=== PATIENT | male | born 1965 | race African-American/Black ===

== ENCOUNTER 2020-05-06 09:31 | Emergency (ER) | payer OTHER, SELFPAY ==
[2020-05-06 10:37] VITALS: BP 153/94; PULSE 73; RESP 16; TEMP 36.8; O2SAT 97; BMI 29.4
[2020-05-06 11:11] LABS: Glucose Urine UA NEG (NEG); Leukocyte Esterase Urine NEG (NEG); Nitrite Urine POS (NEG); Specific Gravity - Urine 1.025 (1.005-1.025); Urine Blood TRACE (NEG); Urine Ketones NEG (NEG); Urine Protein NEG (NEG-TRACE)
[2020-05-06 11:13] LABS: Appearance Urine HAZY; Color Urine STRAW
[2020-05-06 11:23] LABS: Bacteria Urine 4+ /LPF; RBC Urine 0-2 /HPF (0)
[2020-05-06] MEDS: cefTRIAXone sodium 500 MG, Lidocaine HCl 1 % MPF 1 ML IM (11:45)
--- NOTE | 2020-05-06 12:14 | ED_ITS ---
HPI - Male Genitourinary General Chief complaint: Urogenital-Male Stated complaint: uti? Time Seen by Provider: 05/06/20 11:11 Source: patient Mode of arrival: ambulatory History of Present Illness HPI Narrative: 54-year-old male with no significant past medical history presenting to the ED, complaining of dysuria, penile discharge with odor, and urinary frequency x a few weeks. Concered for UTI versus STI. Admitted/active with 1 female partner. Also reports intermittent hives noted to back times months. Denies fever, chills, abdominal pain, flank pain, hematuria, genital lesions, testicular pain MD Complaint: penile discharge, dysuria and possible STD exposure Related Data Previous Rx's Medication Instructions Recorded cefpodoxime 200 mg PO BID 10 Days #20 tab 05/06/20 doxycycline hyclate 100 mg PO BID 7 Days #14 tab 05/06/20 Allergies Allergy/AdvReac Type Severity Reaction Status Date / Time No Known Allergies Allergy Unverified 01/15/20 19:27 [No Known Allergies*] Review of Systems Review of Systems: Constitutional: No Weight loss, No Fever, No Chills Gastrointestinal: No Nausea, No Vomiting, No Diarrhea, No Constipation, No Abdominal pain Genitourinary: + Dysuria, + Urinary Frequency, No Hematuria, No Urinary Incontinence, No Urgency, No Flank Pain, No penile or testicular pain / lesions, + testicular discharge Musculoskeletal: No joint pain, No Myalgias, No Joint Swelling Skin: No Skin Lesions, + intermittent rash Yes all other systems are reviewed and are negative [facility] Past Medical History Attestation statement: The following information was validated with the patient. Medical History (Updated 05/06/20 @ 12:14 by SHABNAM Ddoson) History of broken leg Surgical History (Updated 05/06/20 @ 10:42 by Ellen Zhu) H/O hernia repair Social History Social History Smoked in Last 30 Days: No Advance Directives: No Advance Directives Information Provided: No Physical Exam Vital Signs: Vital Signs: Last Vital Signs Temp 98.3 F 05/06/20 10:37 Pulse 73 05/06/20 10:37 Resp 16 05/06/20 10:37 BP 153/94 H 05/06/20 10:37 Pulse Ox 97 05/06/20 10:37 Body Mass Index 29.4 Const: General: cooperative and healthy appearing Orientation/consciousness: patient oriented x3 Limitations: no limitations HENMT: Head: Yes normal to inspection Ears: hearing grossly normal bilaterally General nose exam: Normal external nose present Face and sinus: Yes normal facial exam Eyes: General: appearance normal, both eyes and all related structures EOM: EOMs intact bilaterally Neck: Neck: Yes normal visual inspection Resp: Effort & Inspection: normal respiratory effort Cardio: Rate: regular rate GI: Inspection: Yes normal to inspection Palpation (GI): Soft to palpation, nontender, no guarding and not rigid : General: Yes no CVA tenderness Male General Exam: Yes normal external exam Penis: normal penis and circumcised Meatus: meatus normal, no meatla discharge and No Blood at meatus present Scrotum: scrotum normal Testes: Testes normal, testicular lie normal, epididymides normal, no testicular mass, no testicular swelling and no testicular tenderness Back/Spine/Pelvis: Back: no CVA tenderness Skin: Rashes: no rashes Wounds: no wounds Neuro: General: patient oriented x3 Gait exam (Neuro): Normal gait present Extrem: General: Yes normal to inspection Course Course Course Narrative: Patient empirically treated for gonorrhea and chlamydia today with 500 IM ceftriaxone and doxy MDM - Male Genitourinary MDM Narrative Medical decision making narrative: On exam VSS, NAD/well appearing, abdomen soft/nontender, no CVAT. exam WNL. Concern for UTI versus STI. Lower con cern for renal stone/pyelo or intra-abdominal pathology Lab Data Labs: Lab Results 05/06/20 Range/Units 11:00 Urine Color STRAW Urine Appearance HAZY Urine pH 6.0 (5.0-8.0) Ur Specific [employer] 1.025 (1.005-1.025) Urine Protein NEG (NEG-TRACE) MG/DL Urine Glucose (UA) NEG (NEG) MG/DL Urine Ketones NEG (NEG) MG/DL Urine Blood TRACE (NEG) Urine Nitrite POS H (NEG) Ur Leukocyte Esterase NEG (NEG) Urine RBC 0-2 (0) /HPF Urine WBC 10-14 H (0-4) /HPF Ur Squamous Epith Cells NONE /LPF Urine Bacteria 4+ /LPF Discharge Plan Discharge Clinical Impression: STI (sexually transmitted infection) Urinary tract infection Qualifiers: Urinary tract infection type: acute cystitis Hematuria presence: without hematuria Qualified Code(s): N30.00 - Acute cystitis without hematuria Patient Disposition: Home, Self-Care Instructions: Urinary Tract Infection in Men (ED) Additional Instructions: YOU HAVE A URINARY TRACT INFECTION, CEFPODOXIME IS ANTIBIOTIC, TAKE PRESCRIBED YOU ALSO WERE CONCERNED FOR POSSIBLY SEXUALLY TRANSMITTED INFECTION, YOU WERE TREATED FOR GONORRHEA AND CHLAMYDIA TODAY IN THE ED THE RESULTS SHOULD BE BACK IN 2-3 DAYS, YOU GET A PHONE CALL THAT IS POSITIVE HE SHOULD FOLLOW UP WITH [facility] FOR FURTHER STI TESTING INCLUDING HERPES, HIV, AND SYPHILIS TESTING. FOLLOW-UP WITH HER DOCTOR IF YOUR SYMPTOMS PERSIST OR WORSEN, DEVELOP VOMITING, FEVER, BLOOD IN HER URINE, OR PERSISTENT DISCHARGE RETURN TO THE ED YOU SHOULD REFRAIN FROM ANY SEXUAL CONTACT UNTIL YOU KNOW THE RESULTS OF YOUR CULTURES Prescriptions: New cefpodoxime 200 mg tablet 200 mg PO BID 10 Days Qty: 20 RF: 0 doxycycline hyclate 100 mg tablet 100 mg PO BID 7 Days Qty: 14 RF: 0 Referrals: Physician,None [Primary Care Provider] - 2 days Interventions: ED Discharge Assessment Last Done: 05/06/20 12:38 Discharge Date/Time: 05/06/20 12:38
[2020-05-07 19:57] LABS: C. trachomatis RNA TMA NOT DETECTED (NOT DETECTED); N. gonorrhoeae RNA TMA NOT DETECTED (NOT DETECTED)
== END 2020-05-06 12:38 | disposition home or self-care (01) ==
PROVIDERS: Physician Assistant; Emergency Provider Emergency Medicine Emergency Medical Services
DX: N30.00 Acute cystitis without hematuria (principal); Z20.2 Contact with and (suspected) exposure to infections with a predominantly sexual mode of transmission
CPT/HCPCS: 36415; 81001; 87086; 87088; 87186; 87491; 87591; 96372; 99283; 99284; J0696

== ENCOUNTER 2021-05-24 08:59 | Emergency (ER) | payer OTHER, SELFPAY ==
[2021-05-24 09:01] VITALS: BP 147/97; PULSE 75; RESP 19; TEMP 36.6; O2SAT 98; BMI 30.3
--- NOTE | 2021-05-24 09:38 | ED_ITS ---
HPI - Male Genitourinary General Chief complaint: Urogenital-Male <Diana Doll NP - Last Filed: 05/24/21 11:07> Stated complaint: ?UTI <Diana Doll NP - Last Filed: 05/24/21 11:07> Time Seen by Provider: 05/24/21 09:11 <PEPITO Tomlin Last Filed: 05/24/21 11:07> Source: patient <Diana Doll NP - Last Filed: 05/24/21 11:07> Mode of arrival: ambulatory <PEPITO Tomlin Last Filed: 05/24/21 11:07> Limitations: no limitations <PEPITO Tomlin Last Filed: 05/24/21 11:07> History of Present Illness HPI Narrative: 55 yo male healthy here seeking treatment for gonorrhea. Patient tells me he was informed by his female partner that she is positive for gonorrhea. He has no symptoms. He is sexually active with one female partner. Does not use condoms. He tells me 3 weeks ago he had a rash on his upper thighs/groin but this is resolved. No urinary symptoms, testicular pain, fevers, chills, penile discharge, back or abdominal pain. <PEPITO Tomlin Last Filed: 05/24/21 11:07> Related Data Home medications: Previous Rx's Medication Instructions Recorded cefpodoxime 200 mg tablet 200 mg PO BID 10 Days #20 tab 05/06/20 doxycycline hyclate 100 mg tablet 100 mg PO BID 7 Days #14 tab 05/06/20 doxycycline monohydrate 100 mg 100 mg PO BID #14 tab 05/24/21 tablet <PEPITO Tomlin Last Filed: 05/24/21 11:07> Allergies/Adverse reactions: Allergies Allergy/AdvReac Type Severity Reaction Status Date / Time No Known Allergies Allergy Unverified 01/15/20 19:27 [No Known Allergies*] <PEPITO Tomlin Last Filed: 05/24/21 11:07> Review of Systems Verdana 4l Review of Systems: Verdana 4d Yes all other systems are reviewed and are negative Verdana 4Il <Diana Doll NP - Last Filed: 05/24/21 11:07> Verdana 4d Verdana 4l Constitutional: Verdana 4d Verdana 4d Constitutional: Verdana 4d Reports no additional constitutional complaints, Denies body ache(s), Denies chills, Denies fever(s), Denies headache(s) and Denies weakness Verdana 4Il <Diana Doll NP - Last Filed: 05/24/21 11:07> VerdanaVerdana 4d Eyes: Eyes: Reports no additional eye complaints and Denies change in vision <Diana Doll NP - Last Filed: 05/24/21 11:07> ENT: Reports system reviewed and no additional complaints, except as documented, Denies dizziness, Denies headache(s), Denies nasal congestion, Denies nasal discharge and Denies neck pain <Diana Doll NP - Last Filed: 05/24/21 11:07> Cardiovascular: Cardiovascular: Reports no additional cardiovascular complaints, Denies chest pain, Denies leg edema and Denies dyspnea <Diana Doll NP - Last Filed: 05/24/21 11:07> Respiratory: Respiratory: Reports no additional respiratory complaints, Denies cough and Denies dyspnea <Diana Doll NP - Last Filed: 05/24/21 11:07> Gastrointestinal: Gastrointestinal: Reports no additional gastrointestinal complaints, Denies abdominal pain, Denies diarrhea, Denies nausea and Denies vomiting <Diana Doll NP - Last Filed: 05/24/21 11:07> Genitourinary: Genitourinary: Denies hematuria, Denies dysuria, Denies flank pain, Denies penile discharge, Denies scrotal swelling, Denies testicular mass, Denies testicular pain, Denies urinary frequency, Denies urinary hesitancy, Denies urinary incontinence and Denies urinary urgency <Diana Doll NP - Last Filed: 05/24/21 11:07> Musculoskeletal: Musculoskeletal: Reports no additional musculoskeletal complaints, Denies back pain, Denies arthralgias, Denies joint swelling, Denies neck pain, Denies numbness and Denies tingling <Diana Doll NP - Last Filed: 05/24/21 11:07> Integumentary/Breasts: Skin/Breast: Reports system reviewed and no additional complaints, except as docu and Denies rash <Diana Doll NP - Last Filed: 05/24/21 11:07> Neurologic: Reports system reviewed and no additional complaints, except as documented, Denies Abnormal speech present, Denies dizziness, Denies headache(s), Denies numbness, Denies tingling and Denies weakness <Diana Doll NP - Last Filed: 05/24/21 11:07> PMF Past Medical History Attestation statement: The following information was validated with the patient. <Diana Doll NP - Last Filed: 05/24/21 11:07> Source: old records reviewed and nursing notes reviewed <Diana Doll NP - Last Filed: 05/24/21 11:07> Medical History: Medical History History of broken leg <Diana Doll NP - Last Filed: 05/24/21 11:07> Surgical History: Surgical History H/O hernia repair <Diana Dlol NP - Last Filed: 05/24/21 11:07> Social History Social History: Social History Advance Directives: No Advance Directives Information Provided: No <Diana Doll NP - Last Filed: 05/24/21 11:07> Physical Exam Verdana 4l Vital Signs: Verdana 4d Verdana 4d Vital Signs: Verdana 4d Verdana 4Bd Last Vital Signs Verdana 4d Machine Skiver New 4d Machine Skiver New 4d Temp 98 F 05/24/21 09:01 Machine Skiver New 4d Pulse 75 05/24/21 09:01 Machine Skiver NewNew 4d Resp 19 05/24/21 09:01 BP 147/97 H 05/24/21 09:01 Pulse Ox 98 05/24/21 09:01 BMI result Body Mass Index 30.3 <Diana Doll NP - Last Filed: 05/24/21 11:07> Vital Signs: Last Vital Signs Temp 98 F 05/24/21 09:01 Pulse 75 05/24/21 09:01 Resp 19 05/24/21 09:01 BP 147/97 H 05/24/21 09:01 Pulse Ox 98 05/24/21 09:01 BMI result Body Mass Index 30.3 <Matti Walters MD - Last Filed: 05/24/21 16:27> Const: General: cooperative, healthy appearing, comfortable and no acute distress <Diana Doll NP - Last Filed: 05/24/21 11:07> Orientation/consciousness: patient oriented x3 <Diana Doll NP - Last Filed: 05/24/21 11:07> Limitations: no limitations <Diana Doll NP - Last Filed: 05/24/21 11:07> HENMT: Head: Yes normal to inspection <Diana Doll NP - Last Filed: 05/24/21 11:07> Ears: hearing grossly normal bilaterally and TM's normal bilaterally <Diana Doll NP - Last Filed: 05/24/21 11:07> General nose exam: Normal external nose present <Diana Doll NP - Last Filed: 05/24/21 11:07> Face and sinus: Yes normal facial exam <Diana Doll NP - Last Filed: 05/24/21 11:07> Mouth: Normal oral and palatal mucosa present <Diana Doll NP - Last Filed: 05/24/21 11:07> Throat: Yes posterior oropharynx normal <Diana Doll NP - Last Filed: 05/24/21 11:07> Eyes: General: appearance normal, both eyes and all related structures <Diana Doll NP - Last Filed: 05/24/21 11:07> Pupils: Equal, round and reactive pupils present <Diana Doll NP - Last Filed: 05/24/21 11:07> Neck: Neck: Yes normal visual inspection, Yes full ROM and Yes no lymphadenopathy <Diana Doll NP - Last Filed: 05/24/21 11:07> Chest: Chest palpation & inspection: normal inspection of the chest <Diana Doll NP - Last Filed: 05/24/21 11:07> Resp: Effort & Inspection: normal respiratory effort <Diana Doll NP - Last Filed: 05/24/21 11:07> Auscultation: clear to auscultation bilaterally <Diana Doll NP - Last Filed: 05/24/21 11:07> Cardio: Rate: regular rate <Diana Doll NP - Last Filed: 05/24/21 11:07> Rhythm: regular rhythm <Diana Doll NP - Last Filed: 05/24/21 11:07> Peripheral pulses: Peripheral pulses 2+ throughout <Diana Doll NP - Last Filed: 05/24/21 11:07> GI: Inspection: Yes normal to inspection <Diana Doll NP - Last Filed: 05/24/21 11:07> Palpation (GI): Soft to palpation and nontender <Diana Doll NP - Last Filed: 05/24/21 11:07> Auscultation: normal bowel sounds <Diana Doll NP - Last Filed: 05/24/21 11:07> : Other: Deferred exam <Diana Doll NP - Last Filed: 05/24/21 11:07> Back/Spine/Pelvis: Thoracic/Lumbar Spine: thoracic and lumbar spine normal to inspection <Diana Doll NP - Last Filed: 05/24/21 11:07> Skin: General skin exam: no rashes or lesions noted <Diana Doll NP - Last Filed: 05/24/21 11:07> Neuro: General: patient oriented x3, no focal motor deficits and normal sensation to monofilament <Diana Doll NP - Last Filed: 05/24/21 11:07> Cranial nerves: Yes Equal, round and reactive pupils present <Diana Doll NP - Last Filed: 05/24/21 11:07> Cognition (Neuro): normal cognition <Diana Doll NP - Last Filed: 05/24/21 11:07> Speech: No Abnormal speech present <Diana Doll NP - Last Filed: 05/24/21 11:07> Gait exam (Neuro): Normal gait present <Diana Doll NP - Last Filed: 05/24/21 11:07> Motor exam (neuro): 5/5 motor strength present throughout <Diana Doll NP - Last Filed: 05/24/21 11:07> Extrem: General: Yes normal to inspection <Diana Doll NP - Last Filed: 05/24/21 11:07> Course Course Course Narrative: 55 yo male here with complaints of exposure to gonorrhea from his sexual partner. He is asymptomatic. VSS. Exam is benign. Deferred exam. Will send UA, CT NG. Will treat patient prophylactically with ceftriaxone 500mg IM, doxycycline x 7 days. Reviewed worrisome signs/symptoms with patient and when to return to ED. Comfortable with plan for discharge home. <Diana Doll NP - Last Filed: 05/24/21 11:07> MDM - Male Genitourinary Medical Records Attestation: I reviewed the patient's medical records. <Diana Doll NP - Last Filed: 05/24/21 11:07> Lab Data Attestation: I reviewed the patient's lab results. <Diana Doll NP - Last Filed: 05/24/21 11:07> Labs: Lab Results 05/24/21 05/24/21 Range/Units 09:40 09:40 Urine Color YELLOW Urine Appearance HAZY Urine pH 5.5 (5.0-8.0) Ur Specific [place] >= 1.030 H (1.005-1.025) Urine Protein NEG (NEG-TRACE) MG/DL Urine Glucose (UA) NEG (NEG) MG/DL Urine Ketones NEG (NEG) MG/DL Urine Blood TRACE (NEG) Urine Nitrite POS H (NEG) Ur Leukocyte Esterase NEG (NEG) Urine RBC 0-2 (0) /HPF Urine WBC 15-29 H (0-4) /HPF Ur Squamous Epith Cells NONE /LPF Urine Bacteria 2+ /LPF Urine Mucus 2+ /LPF Chlam trachomat DNA PCR NOT DETECTED (Not Detect.) N.gonorrhoeae DNA (PCR) NOT DETECTED (Not Detect.) <Diana Doll NP - Last Filed: 05/24/21 11:07> Lab Results 05/24/21 05/24/21 Range/Units 09:40 09:40 Urine Color YELLOW Urine Appearance HAZY Urine pH 5.5 (5.0-8.0) Ur Specific [place] >= 1.030 H (1.005-1.025) Urine Protein NEG (NEG-TRACE) MG/DL Urine Glucose (UA) NEG (NEG) MG/DL Urine Ketones NEG (NEG) MG/DL Urine Blood TRACE (NEG) Urine Nitrite POS H (NEG) Ur Leukocyte Esterase NEG (NEG) Urine RBC 0-2 (0) /HPF Urine WBC 15-29 H (0-4) /HPF Ur Squamous Epith Cells NONE /LPF Urine Bacteria 2+ /LPF Urine Mucus 2+ /LPF Chlam trachomat DNA PCR NOT DETECTED (Not Detect.) N.gonorrhoeae DNA (PCR) NOT DETECTED (Not Detect.) <Matti Walters MD - Last Filed: 05/24/21 16:27> Discharge Plan Discharge Clinical Impression: Concern about STD in male without diagnosis <Diana Doll NP - Last Filed: 05/24/21 11:07> Patient Disposition: Home, Self-Care <Diana Doll NP - Last Filed: 05/24/21 11:07> Instructions: Sexually Transmitted Diseases (ED), Safe Sex Practices (ED) <Diana Doll NP - Last Filed: 05/24/21 11:07> Additional Instructions: We have tested you for both gonorrhea and chlamydia. We will call you if the results are positive (this takes about 24-48 hrs) Abstain from unprotected sex for 7 days If you are positive please re-test at [email or web address] after completion of the antibiotics. <Diana Doll NP - Last Filed: 05/24/21 11:07> Prescriptions: New doxycycline monohydrate 100 mg tablet 100 mg PO BID Qty: 14 RF: 0 No Action cefpodoxime 200 mg tablet 200 mg PO BID 10 Days Qty: 20 RF: 0 doxycycline hyclate 100 mg tablet 100 mg PO BID 7 Days Qty: 14 RF: 0 <Diana Doll NP - Last Filed: 05/24/21 11:07> Referrals: Physician,None [Primary Care Provider] - 2 days <Diana Doll NP - Last Filed: 05/24/21 11:07> Interventions: ED Discharge Assessment Last Done: 05/24/21 09:55 <Diana Doll NP - Last Filed: 05/24/21 11:07> Discharge Date/Time: 05/24/21 09:56 <Diana Doll NP - Last Filed: 05/24/21 11:07>
[2021-05-24] MEDS: cefTRIAXone sodium 500 MG, Lidocaine HCl 1 % MPF 1 ML IM (09:52)
[2021-05-24 09:59] LABS: Appearance Urine HAZY; Color Urine YELLOW; Glucose Urine UA NEG (NEG); Leukocyte Esterase Urine NEG (NEG); Nitrite Urine POS (NEG); PH 5.5 (5.0-8.0); Specific Gravity - Urine >= 1.030 (1.005-1.025); UACC Culture Trigger YES; Urine Blood TRACE (NEG); Urine Ketones NEG (NEG); Urine Protein NEG (NEG-TRACE)
[2021-05-24 10:13] LABS: Bacteria Urine 2+ /LPF; Mucus Urine 2+ /LPF; RBC Urine 0-2 /HPF (0)
[2021-05-24 11:17] LABS: CT PCR NOT DETECTED (Not Detect.); NG PCR NOT DETECTED (Not Detect.)
== END 2021-05-24 09:56 | disposition home or self-care (01) ==
PROVIDERS: Nurse Practitioner Family; Emergency Provider Emergency Medicine
DX: Z20.2 Contact with and (suspected) exposure to infections with a predominantly sexual mode of transmission (principal); Z79.899 Other long term (current) drug therapy
CPT/HCPCS: 81001; 81003; 87086; 87088; 87186; 87491; 87591; 96372; 99284; J0696

== ENCOUNTER 2021-09-09 04:35 | Emergency (ER) | payer OTHER, SELFPAY ==
[2021-09-09 04:51] VITALS: BP 125/80; PULSE 81; RESP 16; TEMP 37.3; O2SAT 96; BMI 30.2
[2021-09-09 05:07] LABS: Appearance Urine CLEAR; Color Urine YELLOW; Glucose Urine UA NEG (NEG); Leukocyte Esterase Urine NEG (NEG); Nitrite Urine NEG (NEG); PH 5.5 (5.0-8.0); Specific Gravity - Urine >= 1.030 (1.005-1.025); Urine Blood NEG (NEG); Urine Ketones 5 MG/DL (NEG); Urine Protein TRACE MG/DL (NEG-TRACE)
--- NOTE | 2021-09-09 06:18 | ED.MALEGU ---
HPI - Male Genitourinary General Chief complaint: Urogenital-Male Stated complaint: UTI Time Seen by Provider: 09/09/21 06:16 Source: patient and family () Mode of arrival: ambulatory History of Present Illness HPI Narrative: 55-year-old male who presents with complaints burning and discharge from his penis is concerned that he may have a sexually transmitted infection. Otherwise, he denies any scrotal or testicular pain and also denies any fever chills. Related Data Previous Rx's Medication Instructions Recorded cefpodoxime 200 mg tablet 200 mg PO BID 10 Days #20 tab 05/06/20 doxycycline hyclate 100 mg tablet 100 mg PO BID 7 Days #14 tab 05/06/20 doxycycline monohydrate 100 mg 100 mg PO BID #14 tab 05/24/21 tablet sulfamethoxazole 800 1 tab PO BID #14 tab 06/04/21 mg-trimethoprim 160 mg tablet (Bactrim DS) doxycycline hyclate 100 mg capsule 100 mg PO BID 7 Days #14 cap 09/09/21 Allergies Allergy/AdvReac Type Severity Reaction Status Date / Time No Known Allergies Allergy Verified 09/09/21 04:51 [No Known Allergies*] Review of Systems Review of Systems: Pertinent positives and negatives as stated in HPI 10 point review of systems is otherwise negative PMFSH Past Medical History Source: nursing notes reviewed Medical History History of broken leg Surgical History H/O hernia repair Social History Social History Advance Directives: No Advance Directives Information Provided: Yes Physical Exam Vital Signs: Vital Signs: Last Vital Signs Temp 99.2 F 09/09/21 04:51 Pulse 84 09/09/21 06:27 Resp 18 09/09/21 06:27 BP 128/76 09/09/21 06:27 Pulse Ox 99 09/09/21 06:27 BMI result Body Mass Index 30.2 VITAL SIGNS: Reviewed. GENERAL: Well developed, well nourished, in no acute distress. HEAD: Normocephalic/atraumatic EYES: PERRLA, EOMI LUNGS: Normal breath sounds. CARDIOVASCULAR: Regular rate and rhythm without noted murmurs ABDOMEN: Soft, non-tender, non-distended with bowel sounds. SKIN: Inspection of the skin reveals no rashes NEUROLOGIC: Alert and oriented x 4. Course Course Course Narrative: 55-year-old male with history and clinical presentation suggestive of possible sexually transmitted infection and was empirically treated here in the emergency room and discharged with course of doxycycline. MDM - Male Genitourinary Lab Data Labs: Lab Results 09/09/21 09/09/21 Range/Units 05:01 05:01 Urine Color YELLOW Urine Appearance CLEAR Urine pH 5.5 (5.0-8.0) Ur Specific [place] >= 1.030 H (1.005-1.025) Urine Protein TRACE (NEG-TRACE) MG/DL Urine Glucose (UA) NEG (NEG) MG/DL Urine Ketones 5 (NEG) MG/DL Urine Blood NEG (NEG) Urine Nitrite NEG (NEG) Ur Leukocyte Esterase NEG (NEG) Chlam trachomat DNA PCR NOT DETECTED (Not Detect.) N.gonorrhoeae DNA (PCR) NOT DETECTED (Not Detect.) Discharge Plan Discharge Clinical Impression: Urethritis Patient Disposition: Home, Self-Care Instructions: Nonspecific Urethritis in Men (ED) Additional Instructions: 1. Complete the entire course of antibiotics as prescribed. 2. Follow-up on the results by logging into the patient portal for concept your primary care provider to obtain information. Return to the ER for worsening symptoms. Prescriptions: New doxycycline hyclate 100 mg capsule 100 mg PO BID 7 Days Qty: 14 0RF No Action cefpodoxime 200 mg tablet 200 mg PO BID 10 Days Qty: 20 0RF Rx Instructions: must administer with a meal/food doxycycline hyclate 100 mg tablet 100 mg PO BID 7 Days Qty: 14 0RF doxycycline monohydrate 100 mg tablet 100 mg PO BID Qty: 14 0RF sulfamethoxazole-trimethoprim [Bactrim DS] 800-160 mg tablet 1 tab PO BID Qty: 14 0RF Interventions: ED Discharge Assessment Last Done: 09/09/21 06:41 Discharge Date/Time: 09/09/21 06:42
[2021-09-09 06:27] VITALS: BP 128/76; PULSE 84; RESP 18; O2SAT 99
[2021-09-09] MEDS: cefTRIAXone sodium 500 MG, Lidocaine HCl 1 % MPF 1 ML IM (06:31)
[2021-09-09 06:45] LABS: CT PCR NOT DETECTED (Not Detect.); NG PCR NOT DETECTED (Not Detect.)
== END 2021-09-09 06:42 | disposition home or self-care (01) ==
PROVIDERS: Emergency Provider Student in an Organized Health Care Education/Training Program
DX: N34.2 Other urethritis (principal)
CPT/HCPCS: 81003; 87491; 87591; 96372; 99283; 99284; J0696

== ENCOUNTER 2021-09-15 04:27 | Emergency (ER) | payer OTHER, SELFPAY ==
--- NOTE | ~2021-09-15 | XR_ITS ---
EXAMINATION: XR CHEST CLINICAL INFORMATION: Cough COMPARISON: 07/19/2017 TECHNIQUE: Frontal view of the chest was obtained. FINDINGS: The lungs are well expanded. Hazy opacities at both lung bases. No pleural effusion or pneumothorax. The cardiomediastinal silhouette is within normal limits. No acute osseous abnormality. XR/XR chest 1V IMPRESSION: Hazy bibasilar opacities could be atelectatic or infectious/inflammatory.
[2021-09-15 04:35] VITALS: BP 119/78; PULSE 89; RESP 16; TEMP 37.7; O2SAT 93; BMI 29.4
[2021-09-15 05:00] LABS: COVID-19 Test Positive (Negative)
[2021-09-15 05:26] LABS: IDNOW Serial# 16C4AD1C; Influenza A Invalid (Negative); Influenza B2 Invalid (Negative)
--- NOTE | 2021-09-15 07:03 | ED.URI ---
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) Associated symptoms: fever and cough Treatments prior to arrival: none Related Data Previous Rx's Medication Instructions Recorded cefpodoxime 200 mg tablet 200 mg PO BID 10 Days #20 tab 05/06/20 doxycycline hyclate 100 mg tablet 100 mg PO BID 7 Days #14 tab 05/06/20 doxycycline monohydrate 100 mg 100 mg PO BID #14 tab 05/24/21 tablet sulfamethoxazole 800 1 tab PO BID #14 tab 06/04/21 mg-trimethoprim 160 mg tablet (Bactrim DS) doxycycline hyclate 100 mg capsule 100 mg PO BID 7 Days #14 cap 09/09/21 dexamethasone 6 mg tablet 6 mg PO DAILY 7 Days #7 tab 09/15/21 Allergies Allergy/AdvReac Type Severity Reaction Status Date / Time No Known Allergies Allergy Verified 09/15/21 04:35 [No Known Allergies*] Review of Systems Review of Systems: Constitutional : positive Fever, no Chills, no fatigue, no Malaise ENT/Mouth : no sore throat, no runny nose Eyes: No Discharge Cardiovascular : No Chest Pain, No SOB Respiratory : pos Cough, No Sputum Gastrointestinal : No Nausea, No Vomiting, No Diarrhea Genitourinary : No Dysuria, No Urinary Frequency Musculoskeletal : no Myalgia Skin : No rash Neuro : No Headache PMFSH Past Medical History Attestation statement: The following information was validated with the patient. Medical History Bronchitis History of broken leg Surgical History H/O hernia repair Social History Social History (Updated 09/15/21 @ 07:37 by Ratna Millard DO) Patient Tobacco Use Status: Never used Tobacco Advance Directives: No Physical Exam Vital Signs: Vital Signs: Last Vital Signs Temp 99.8 F 09/15/21 04:35 Pulse 80 09/15/21 07:30 Resp 16 09/15/21 07:30 BP 119/78 09/15/21 04:35 Pulse Ox 92 09/15/21 07:56 BMI result Body Mass Index 29.4 Appearance: Alert. Oriented X3. No acute distress. Eyes: Pupils equal, round and reactive to light. ENT: Pharynx normal. Neck: Normal inspection. Neck supple. CVS: Normal heart rate and rhythm. Pulses normal. Respiratory: No respiratory distress. Breath sounds slightly diminished but no wheezes noted and he appears in no distress Abdomen: Soft and nontender. Skin: Skin warm and dry. Normal skin color. Normal skin turgor. Extremities: No lower extremity edema. Neuro: Oriented X 3. No motor deficit. No sensory deficit. Course Course Course Narrative: 92% walking sat does not meet hypoxia criteria did not feel short of breath not labored MDM - URI/Sore Throat MDM Narrative Medical decision making narrative: 55 yo male hx of bronchitis he is not vaccinated + for COVID CXR shows opacities RA sat 93% he is not in any distress. He has no CP at this time. He will need INH and given hx of prior RAD start on dexamethasone. I did offer treatment such as mAb, remdesivir and paxlovid given his age and unvaccinated status but he refuses and states he wants to try other things that he's heard of specifically hydrogen peroxide. I told him this could be dangerous and these are not validated treatments. He still declines medical therapies. Will ambulate patient and obtain O2 trial. Lab Data Labs: Lab Results 09/15/21 09/15/21 Range/Units 04:46 04:46 COVID-19 (ANN-MARIE) Positive A (Negative) COVID-19 Clin Com See Note Influenza Type A (TRACY) Invalid (Negative) Influenza Type B (TRACY) Invalid (Negative) Influenza A & B Note See Note Discharge Plan Discharge Clinical Impression: Pneumonia due to 2019-nCoV Patient Disposition: Home, Self-Care Instructions: Viral Pneumonia (ED), COVID-19 (Coronavirus Disease 2019) (ED) Additional Instructions: return to ED for any worsening symptoms or concerns you can use the inhaler 2 to 4 puffs every 4 hours as needed if you change your mind and want referral for monoclonal antibody, paxlovid or remdesivir please contact your primary care or come back to the emergency department. you declined treatment today. if you are so short of breath you cannot walk to your bathroom seek immediate care. Prescriptions: New dexamethasone 6 mg tablet 6 mg PO DAILY 7 Days Qty: 7 0RF No Action cefpodoxime 200 mg tablet 200 mg PO BID 10 Days Qty: 20 0RF Rx Instructions: must administer with a meal/food doxycycline hyclate 100 mg tablet 100 mg PO BID 7 Days Qty: 14 0RF doxycycline monohydrate 100 mg tablet 100 mg PO BID Qty: 14 0RF sulfamethoxazole-trimethoprim [Bactrim DS] 800-160 mg tablet 1 tab PO BID Qty: 14 0RF doxycycline hyclate 100 mg capsule 100 mg PO BID 7 Days Qty: 14 0RF Stand Alone Forms: Work/School Release
[2021-09-15] MEDS: Albuterol Sulfate 90 MCG 8 GM INHALER 2 PUFF INHALE (07:29)
[2021-09-15 07:30] VITALS: PULSE 80; RESP 16; O2SAT 95
[2021-09-15 07:56] VITALS: O2SAT 92
[2021-09-15] MEDS: dexAMETHasone 6 MG TABLET PO (07:56)
== END 2021-09-15 08:12 | disposition home or self-care (01) ==
PROVIDERS: Emergency Provider Emergency Medicine
DX: U07.1 COVID-19 (principal); J12.82 Pneumonia due to coronavirus disease 2019; R05.9 Cough, unspecified; Z79.899 Other long term (current) drug therapy
CPT/HCPCS: 71045; 87502; 87635; 94640; 99281; 99284; J8540

== ENCOUNTER 2022-06-16 17:45 | Emergency (ER) | payer OTHER, SELFPAY ==
--- NOTE | 2022-06-16 18:48 | ED_ITS ---
HPI - Male Genitourinary General Chief complaint: Urogenital-Male Stated complaint: ?UTI Time Seen by Provider: 06/16/22 22:56 Related Data Previous Rx's Medication Instructions Recorded cefpodoxime 200 mg tablet 200 mg PO BID 10 days #20 tabs 05/06/20 doxycycline hyclate 100 mg tablet 100 mg PO BID 7 days #14 tabs 05/06/20 doxycycline monohydrate 100 mg 100 mg PO BID #14 tabs 05/24/21 tablet sulfamethoxazole 800 1 tab PO BID #14 tabs 06/04/21 mg-trimethoprim 160 mg tablet (Bactrim DS) doxycycline hyclate 100 mg capsule 100 mg PO BID 7 days #14 caps 09/09/21 dexamethasone 6 mg tablet 6 mg PO DAILY 7 days #7 tabs 09/15/21 doxycycline hyclate 100 mg capsule 100 mg PO BID 7 days #14 caps 09/15/21 cefuroxime axetil 500 mg tablet 500 mg PO BID #14 tabs 06/16/22 doxycycline hyclate 100 mg capsule 100 mg PO BID #14 caps 06/16/22 Allergies Allergy/AdvReac Type Severity Reaction Status Date / Time No Known Allergies Allergy Verified 06/16/22 18:48 [No Known Allergies*] PMFSH Past Medical History Medical History Bronchitis History of broken leg Surgical History H/O hernia repair Social History Social History (Updated 09/15/21 @ 07:37 by Saundra Millard DO) Patient Tobacco Use Status: Never used Tobacco Advance Directives: No Advance Directives Information Provided: No Physical Exam Vital Signs: Vital Signs: Last Vital Signs Temp 97.6 F 06/16/22 23:18 Pulse 52 06/16/22 23:18 Resp 20 06/16/22 23:18 BP 145/90 H 06/16/22 23:18 Pulse Ox 97 06/16/22 23:18 O2 Del Method 06/16/22 23:18 BMI result Body Mass Index 30.2 Course Course Course Narrative: SULEMA-19:50PM 56yoM presenting to the ED with complaints of dysuria and abnormal white discharge started today and he is concerns for STD and would like to be checked. His partner also has lots of discharge , per pt. he denies any fevers, abdominal pain, rashes or lesions to the penile area, testicular pain or swelling or any other symptoms complaints or concerns at this time. Plan: Will obtain a UA and a CT NG evaluate for possible gonorrhea Medications Administered Discontinued Medications Generic Name Dose Route Start Last Admin Trade Name Francy PRN Reason Stop Dose Admin Ceftriaxone Sodium 1 gm/ 0 gm 06/16/22 23:12 06/16/22 23:27 Lidocaine HCl 2.1 ml IM 06/16/22 23:13 1 kit ONCE ONE Administration Doxycycline Monohydrate 100 mg 06/16/22 23:12 06/16/22 23:27 Doxycycline Monohydrate 100 Mg Capsule PO 06/16/22 23:13 100 mg ONCE ONE Administration Medical Decision Making Lab Data Labs: Lab Results 06/16/22 06/16/22 Range/Units 21:08 21:08 Urine Color Yellow Urine Appearance Cloudy Urine pH 5.5 (5.0-9.0) Ur Specific [place] 1.025 (1.005-1.025) Urine Protein 30 (1+) H (Neg-Trace) mg/dL Urine Glucose (UA) Negative (Negative) mg/dL Urine Ketones Negative (Negative) mg/dL Urine Blood Trace H (Negative) Urine Nitrite Negative (Negative) Ur Leukocyte Esterase Large (3+) H (Negative) Urine RBC 3-5 H (0-2) /HPF Urine WBC >50 H (0-5) /HPF Ur Squamous Epith Cells 0-2 (0-2) /HPF Urine Bacteria 4+ (None Seen) Hyaline Casts 0-2 (0-2) /LPF Chlam trachomat DNA PCR NOT DETECTED (Not Detect.) N.gonorrhoeae DNA (PCR) NOT DETECTED (Not Detect.) Discharge Plan Discharge Clinical Impression: Acute UTI, STD exposure Patient Disposition: Home, Self-Care Instructions: Sexually Transmitted Diseases (ED), Urinary Tract Infection in Men (ED) Additional Instructions: Please follow-up with your primary care physician tomorrow. If you have any worsening or new symptoms, please return to the emergency room or call 911 Prescriptions: New cefuroxime axetil 500 mg tablet 500 mg PO BID Qty: 14 0RF doxycycline hyclate 100 mg capsule 100 mg PO BID Qty: 14 0RF No Action cefpodoxime 200 mg tablet 200 mg PO BID 10 Days Qty: 20 0RF Rx Instructions: must administer with a meal/food doxycycline hyclate 100 mg tablet 100 mg PO BID 7 Days Qty: 14 0RF doxycycline monohydrate 100 mg tablet 100 mg PO BID Qty: 14 0RF sulfamethoxazole-trimethoprim [Bactrim DS] 800-160 mg tablet 1 tab PO BID Qty: 14 0RF doxycycline hyclate 100 mg capsule 100 mg PO BID 7 Days Qty: 14 0RF dexamethasone 6 mg tablet 6 mg PO DAILY 7 Days Qty: 7 0RF doxycycline hyclate 100 mg capsule 100 mg PO BID 7 Days Qty: 14 0RF Interventions: ED Discharge Assessment Last Done: 06/16/22 23:33 Discharge Date/Time: 06/16/22 23:33
[2022-06-16 18:49] VITALS: BP 136/82; PULSE 77; RESP 16; TEMP 37.1; O2SAT 96; BMI 30.2
[2022-06-16 21:21] LABS: Appearance Urine Cloudy; Color Urine Yellow; Glucose Urine UA Negative (Negative); Leukocyte Esterase Urine Large (3+) (Negative); Nitrite Urine Negative (Negative); PH 5.5 (5.0-9.0); Specific Gravity - Urine 1.025 (1.005-1.025); UMIC TRIGGER UACC YES; Urine Blood Trace (Negative); Urine Ketones Negative (Negative); Urine Protein 30 (1+) mg/dL (Neg-Trace)
[2022-06-16 21:32] LABS: Bacteria Urine 4+ (None Seen); Hyaline Casts Urine 0-2 /LPF (0-2); Squamous Epithelial Cell Urine 0-2 /HPF (0-2); UACC Culture Trigger YES; WBC Urine >50 /HPF (0-5)
--- NOTE | 2022-06-16 23:15 | ED.MALEGU ---
HPI - Male Genitourinary General Chief complaint: Urogenital-Male Stated complaint: ?UTI Time Seen by Provider: 06/16/22 22:56 Source: patient Mode of arrival: ambulatory Limitations: no limitations History of Present Illness HPI Narrative: Patient comes to the emergency room complaining of penile discharge, pain with urination. Patient states that his partner has the same symptoms. Patient requesting to be treated for STDs. Denies fever chills. Patient complaining of mild suprapubic discomfort, no flank pain. No other complaints. Related Data Previous Rx's Medication Instructions Recorded cefpodoxime 200 mg tablet 200 mg PO BID 10 days #20 tabs 05/06/20 doxycycline hyclate 100 mg tablet 100 mg PO BID 7 days #14 tabs 05/06/20 doxycycline monohydrate 100 mg 100 mg PO BID #14 tabs 05/24/21 tablet sulfamethoxazole 800 1 tab PO BID #14 tabs 06/04/21 mg-trimethoprim 160 mg tablet (Bactrim DS) doxycycline hyclate 100 mg capsule 100 mg PO BID 7 days #14 caps 09/09/21 dexamethasone 6 mg tablet 6 mg PO DAILY 7 days #7 tabs 09/15/21 doxycycline hyclate 100 mg capsule 100 mg PO BID 7 days #14 caps 09/15/21 cefuroxime axetil 500 mg tablet 500 mg PO BID #14 tabs 06/16/22 doxycycline hyclate 100 mg capsule 100 mg PO BID #14 caps 06/16/22 Allergies Allergy/AdvReac Type Severity Reaction Status Date / Time No Known Allergies Allergy Verified 06/16/22 18:48 [No Known Allergies*] Review of Systems Review of Systems: Constitutional : No Weight loss, No Fever, No Chills, No Night Sweats, No Fatigue, No Malaise ENT/Mouth : No Hearing loss, No Ear Pain, No Nasal Congestion, No Sinus Pain, No Hoarseness, No sore throat, No Rhinorrhea, No Swallowing Difficulty Eyes: No Eye Pain, No Swelling, No Redness, No Foreign Body, No Discharge, No Vision Changes Cardiovascular : No Chest Pain, No SOB, No Dyspnea on Exertion, No Orthopnea, No Edema, No Palpitations Respiratory : No Cough, No Sputum, No Wheezing, No Smoke Exposure, No Dyspnea Gastrointestinal : No Nausea, No Vomiting, No Diarrhea, No Constipation, mild suprapubic discomfort, No Hematochezia, No Melena Genitourinary : Complaining of dysuria, urinary frequency, no hematuria, complaining of penile discharge, no Hesitancy Musculoskeletal : No joint pain, No Myalgias, No Joint Swelling Skin : No Skin Lesions, No rash Neuro : No Weakness, No Numbness, No Paresthesias, No Loss of Consciousness, No Dizziness, No Headache Psych : No Anxiety/Panic, No Depression, No SI/HI/AH/VH, No Social Issues, Heme/Lymph: No Bruising, No Bleeding,No Lymphadenopathy Endocrine : No Polyuria, No Polydipsia, No Temperature Intolerance PMFSH Past Medical History Medical History Bronchitis History of broken leg Surgical History H/O hernia repair Social History Social History (Updated 09/15/21 @ 07:37 by Saundra Millard DO) Patient Tobacco Use Status: Never used Tobacco Advance Directives: No Advance Directives Information Provided: No Physical Exam Vital Signs: Vital Signs: Last Vital Signs Temp 98.8 F 06/16/22 18:49 Pulse 77 06/16/22 18:49 Resp 16 06/16/22 18:49 BP 136/82 06/16/22 18:49 Pulse Ox 96 06/16/22 18:49 O2 Del Method 06/16/22 18:49 BMI result Body Mass Index 30.2 Const: Other: Appearance: Alert. Oriented X3. No acute distress. Eyes: Pupils equal, round and reactive to light. ENT: Pharynx normal. Neck: Normal inspection. Neck supple. No lymph nodes noted. No crepitus CVS: Normal heart rate and rhythm. Pulses normal. Normal S1 and S2 Respiratory: No respiratory distress. Breath sounds normal. No Wheezing. No rales Abdomen: Soft and nontender. No rigidity. No distention. : Patient respectfully declined Skin: Skin warm and dry. Normal skin color. Normal skin turgor. Extremities: No lower extremity edema. No Lacerations. No Rash Neuro: Oriented X 3. No motor deficit. No sensory deficit. Moving all extremities. No slurred speech. CN 2 through 12 grossly intact Psych: calm, cooperative, normal affect Course Course Course Narrative: -urinalysis positive for UTI. -patient's partner has the same symptoms, likely STD. -patient given IM ceftriaxone, I gave 1 g since this is also to treat the UTI, and doxycycline. -patient will be discharged with doxycycline and ceftriaxone, again, to treat STD and the UTI Medical Decision Making Differential Diagnosis Differential Diagnoses: The differential diagnosis associated with the presentation includes (UTI, gonorrhea, chlamydia) Lab Data MDM Lab Attestation statement: I reviewed the patient's lab results. Labs: Lab Results 06/16/22 Range/Units 21:08 Urine Color Yellow Urine Appearance Cloudy Urine pH 5.5 (5.0-9.0) Ur Specific [place] 1.025 (1.005-1.025) Urine Protein 30 (1+) H (Neg-Trace) mg/dL Urine Glucose (UA) Negative (Negative) mg/dL Urine Ketones Negative (Negative) mg/dL Urine Blood Trace H (Negative) Urine Nitrite Negative (Negative) Ur Leukocyte Esterase Large (3+) H (Negative) Urine RBC 3-5 H (0-2) /HPF Urine WBC >50 H (0-5) /HPF Ur Squamous Epith Cells 0-2 (0-2) /HPF Urine Bacteria 4+ (None Seen) Hyaline Casts 0-2 (0-2) /LPF Discharge Plan Discharge Clinical Impression: Acute UTI, STD exposure Patient Disposition: Home, Self-Care Instructions: Sexually Transmitted Diseases (ED), Urinary Tract Infection in Men (ED) Additional Instructions: Please follow-up with your primary care physician tomorrow. If you have any worsening or new symptoms, please return to the emergency room or call 911 Prescriptions: New cefuroxime axetil 500 mg tablet 500 mg PO BID Qty: 14 0RF doxycycline hyclate 100 mg capsule 100 mg PO BID Qty: 14 0RF No Action cefpodoxime 200 mg tablet 200 mg PO BID 10 Days Qty: 20 0RF Rx Instructions: must administer with a meal/food doxycycline hyclate 100 mg tablet 100 mg PO BID 7 Days Qty: 14 0RF doxycycline monohydrate 100 mg tablet 100 mg PO BID Qty: 14 0RF sulfamethoxazole-trimethoprim [Bactrim DS] 800-160 mg tablet 1 tab PO BID Qty: 14 0RF doxycycline hyclate 100 mg capsule 100 mg PO BID 7 Days Qty: 14 0RF dexamethasone 6 mg tablet 6 mg PO DAILY 7 Days Qty: 7 0RF doxycycline hyclate 100 mg capsule 100 mg PO BID 7 Days Qty: 14 0RF
[2022-06-16 23:18] VITALS: BP 145/90; PULSE 52; RESP 20; TEMP 36.4; O2SAT 97
[2022-06-16] MEDS: Doxycycline Monohydrate 100 MG CAPSULE PO (23:27)
[2022-06-16] MEDS: cefTRIAXone sodium 1 GM, Lidocaine HCl 1 % MPF 2.1 ML IM (23:27)
[2022-06-17 02:51] LABS: CT PCR NOT DETECTED (Not Detect.); NG PCR NOT DETECTED (Not Detect.)
== END 2022-06-16 23:33 | disposition home or self-care (01) ==
PROVIDERS: Physician Assistant Medical; Emergency Provider Emergency Medicine
DX: N39.0 Urinary tract infection, site not specified (principal); Z20.2 Contact with and (suspected) exposure to infections with a predominantly sexual mode of transmission
CPT/HCPCS: 0353U; 81001; 87086; 96372; 99283; 99284; J0696